=== PATIENT | female | born 1990 | race Hispanic/Latino ===

== ENCOUNTER 2022-07-22 20:15 | Observation (INO) | payer MEDICAID, SELFPAY ==
[2022-07-22] VITALS (17 sets, daily range): BP systolic 104–124; BP diastolic 67–76; PULSE 81–106; RESP 13–36; TEMP 36.9; O2SAT 93–95
--- NOTE | ~2022-07-22 | XR_ITS ---
XR chest 2V DATE: 07/25/2022 08:56 INDICATION: Dyspnea. Pneumonia. TECHNIQUE: PA and lateral views COMPARISON: July 22, 2022 CT pulmonary scan FINDINGS: Patchy bilateral pulmonary infiltrates are again noted, greatest in the lower lung zones. N o pleural effusion or pulmonary vascular congestion is noted. Heart size appears normal. IMPRESSION: Patchy bilateral pulmonary infiltrates, greater in the lower lung zones Reviewed, dictated and finalized at location [facility]. SUPERINTENDENT IMPRESSION: Patchy bilateral pulmonary infiltrates, greater in the lower lung z ones
--- NOTE | ~2022-07-22 | CT_ITS ---
Clinical Indication: Chest pain CT Scan of the Chest with Contrast: Technique: Contiguous sections were acquired throughout the chest after intravenous administration of 100 cc of Omnipaque 350. Dose reduction technique was used on this scan by utilizing automated expos ure control and iterative reconstruction technique. The dose-length product (DLP) was 643.11 mGy-cm. Findings: There are enlarged lymph nodes along the right paratracheal stripe, and the subcarinal region, at the right hilum. Largest node is a right hilar node measuring 2.6 x 1.8 cm (axial image 107).. There is no filling defect in the pulmonary arterial tree to suggest pulmonary embolus. There is no evidence o f aortic dissection or aneurysm. There is no evidence of pleural or pericardial effusion. There is extensive groundglass opacity and interstitial thickening at the lung bases. There is more m ild subpleural reticulation and interstitial thickening in the upper lobes and more superior lung zon es. Images through the upper abdomen reveal no abnormalities. Impression: No evidence of pulmonary embolus, aortic dissection, or aortic aneurysm. Extensive groundglass opacity and interstitial thickening at the lung bases, with more mild subpleura l reticulation and interstitial thickening in the more superior lung zones. Consider chronic intersti tial disease, atypical infection, or other inflammatory disorders. Drug toxicity or inhalational expo sure would be an alternative consideration. Mediastinal and hilar lymphadenopathy, nonspecific. This is presumably reactive. Consider follow-up exam after interval therapy to reassess both pulmonary disease and lymphadenopathy . Reviewed, dictated and finalized at [facility]. RATION SPECIALIST Impression: No evidence of pulmonary embolus, aortic dissection, or aortic aneurysm. Extensive groundglass opacity and interstitial thickening at the lung bases, wi th more mild subpleural reticulation and interstitial thickening in the more berry perior lung zones. Consider chronic interstitial disease, atypical infection, o r other inflammatory disorders. Drug toxicity or inhalational exposure would be an alternative consideration. Mediastinal and hilar lymphadenopathy, nonspecific. This is presumably reactive . Consider follow-up exam after interval therapy to reassess both pulmonary disea se and lymphadenopathy.
--- NOTE | 2022-07-22 20:26 | ECG_ITS ---
Measurements Intervals [place] Rate: 104 P: 31 CT: 141 QRS: 14 QRSD: 94 T: 5 QT: 334 QTc: 440 Interpretive Statements SINUS TACHYCARDIA NONSPECIFIC T-WAVE ABNORMALITY ABNORMAL ECG NO PREVIOUS ECG AVAILABLE FOR COMPARISON Electronically Signed On 07-23-2022 10:08:16 DOUBLE HEAD MACHINE OPERATOR by Bart Seth M.D.
[2022-07-22 20:39] LABS: Basophils Absolute Auto 0.1 K/mm3 (0.0-0.1); Basophils Percent Auto 0.9 % (0.2-1.2); Eosinophils Absolute Auto 0.7 K/mm3 (0-0.3); Eosinophils Percent Auto 6.6 % (0-4.4); Hematocrit 40.5 % (37.0-47.0); Hemoglobin 13.3 g/dL (12.0-15.0); Immature Granulocyte Absolute 0.03 K/mm3 (0.00-0.031); Immature Granulocyte Percent A 0.3 % (0-0.5); Lymphocytes Absolute Auto 1.99 K/mm3 (0.9-3.2); Lymphocytes Percent Auto 19.9 % (18.3-44.2); Mean Corpuscular HGB Conc 32.8 g/dl (32-36); Mean Corpuscular Hemoglobin 28.7 pg (26-34); Mean Corpuscular Volume 87.5 fl (80-100); Mean Platelet Volume 8.5 fl (7.4-10.4); Monocytes Absolute Auto 0.4 K/mm3 (0.1-0.6); Monocytes Percent Auto 4.3 % (2.6-8.5); Neutrophils Absolute Auto 6.8 K/mm3 (1.3-6.7); Platelet Count Result 377 k/mm3 (150-375); Red Blood Count 4.63 M/mm3 (4.2-5.4); Red Cell Distribution Width 12.8 % (11.5-14.5)
[2022-07-22 20:49] LABS: INR 1.1; Prothrombin Time 13.8 Seconds (11.1-14.7)
[2022-07-22 20:50] LABS: Partial Thromboplastin Time 30.7 SECONDS (22.3-36.8)
[2022-07-22 20:53] LABS: Alanine Aminotransferase 79 U/L (6-35); Albumin Level 4.4 g/dL (3.5-5.1); Alkaline Phosphatase 64 U/L (38-126); Anion Gap 6 mmol/L (8-16); Aspartate Amino Transferase 130 U/L (14-36); Bilirubin,Total 0.5 mg/dL (0.2-1.3); Blood Urea Nitrogen 9 mg/dL (7-17); Calcium 8.8 mg/dL (8.4-10.2); Carbon Dioxide 26 mmol/L (22-30); Chloride 101 mmol/L (98-107); Estimated Glomerular Filt Rate > 60; Glucose 106 mg/dL (65-110); Lipase 150 U/L (23-300); Potassium 3.8 mmol/L (3.4-5.0); Sodium 133 mmol/L (137-145)
[2022-07-22 21:04] LABS: Troponin I < 0.012 ng/mL (0.000-0.034)
--- NOTE | 2022-07-22 21:05 | ED.BACK ---
HPI - Back Pain/Injury General Chief Complaint: Back Pain/Injury <STEPHANIA Love Last Filed: 07/23/22 01:05> Stated Complaint: back pain <STEPHANIA Love Last Filed: 07/23/22 01:05> Time Seen by Provider: 07/22/22 20:46 <STEPHANIA Love Last Filed: 07/23/22 01:05> History of Present Illness HPI Narrative: Patient is a 32-year-old Turkish-speaking female here with her for evaluation of chest pain. Patient states that the pain is severe in nature, present in the center of her chest. Worse with deep respirations. States that she has also felt short of breath and notes a pain in her upper back. She tells me that she has been seen in the ED for this issue at outside hospital numerous times. Has been discharged with antibiotics that transiently improve her symptoms but states they have always come back. States that she was supposed to see a central sterile supply technician but was unable to get in due to insurance issues. She quit smoking cigarettes 1 year ago. Also notes bilateral leg pain and some paresthesias in her hands. Denies any hemoptysis, fevers, chills, nausea, vomiting or abdominal pain. <STEPHANIA Love Last Filed: 07/23/22 01:05> Related Data Allergies/Adverse Reactions: Allergies Allergy/AdvReac Type Severity Reaction Status Date / Time No Known Allergies Allergy Verified 07/22/22 20:51 <STEPHANIA Love Last Filed: 07/23/22 01:05> Review of Systems Review of Systems: Gen: Denies fevers or chills Eyes: Denies eye pain or visual change ENT: Denies congestion Respiratory: Reports shortness of breath and cough CV: Reports chest pain GI: Denies abdominal pain nausea, emesis or diarrhea denies burning, urgency, frequency or hematuria Musculoskeletal: Denies back pain or muscle pain Neuro: Denies numbness, tingling, weakness or focal weakness Skin: Denies rash Except as documented, all other systems reviewed and negative <STEPHANIA Love Last Filed: 07/23/22 01:05> Exam Narrative: APPEARANCE: Anxious appearing. Head: Normocephalic and atraumatic. EYES: PERRLA/EOMI, conjunctivae clear NOSE: No nasal drainage EARS: External ear normal in appearance THROAT: Oropharynx is clear. Mucous membranes are moist. NECK: Supple. No adenopathy, no masses. RESPIRATORY: Airway patent, respirations nonlabored. Clear to auscultation bilaterally, no rales, rhonchi, wheezing. CARDIOVASCULAR: Tachycardic. Regular rhythm without murmurs, rubs, or gallops. ABDOMINAL: Normoactive bowel sounds. Soft, nontender, nondistended. No rebound tenderness or guarding. MUSCULOSKELETAL: Extremities are warm and well-perfused. Moves all extremities well. No edema. NEURO: Normal speech. No focal neurologic deficits. SKIN: Skin is warm and dry. No rashes. PSYCHIATRIC: Normal affect/mood. <Sabina Navarro PA-C - Last Filed: 07/23/22 01:05> Course DRAWING IN MACHINE TENDER HELPER/PA Physician Supervision For this encounter, I have reviewed the PA documentation, treatment plan and medical decision making: And I have had [id number] time with the patient. On exam heart regular rate and rhythm without murmur lungs with mild coarse breath sounds in bilateral lung bases no wheezing abdomen is soft and nontender. PA discussed with hospitalist will admit with antibiotics and further inpatient evaluation <Calus Mobley DO - Last Filed: 07/23/22 00:09> Vital Signs Vital signs: Vital Signs Temperature 98.5 F 07/22/22 20:20 Pulse Rate 106 H 07/22/22 20:20 Respiratory Rate 14 07/22/22 20:20 Blood Pressure 124/76 07/22/22 20:20 Pulse Oximetry 94 07/22/22 20:20 Oxygen Delivery Room Air 07/22/22 20:20 Temperature 98.5 F 07/22/22 20:20 Pulse Rate 93 07/22/22 23:10 Respiratory Rate 18 07/22/22 23:10 Blood Pressure 112/70 07/22/22 21:04 Pulse Oximetry 94 07/22/22 21:46 Oxygen Delivery Room Air 07/22/22 20:20 <Sabina Gunter
[2022-07-22] MEDS: Please add drug allergy info to patient profile. 1 EACH XX (21:18)
--- NOTE | 2022-07-22 22:02 | PC.NURSE ---
CAYLA Muhammad verbal order to NOT give protocol ordered ASA at this time.
[2022-07-22 22:04] LABS: Influenza A QL RT-PCR Negative (Negative); Influenza B QL RT-PCR Negative (Negative); SARS-CoV-2 RNA PCR Negative
[2022-07-22 22:44] LABS: Beta HCG Quantitative < 2.39 mIU/ML
[2022-07-22] MEDS: ALBUTEROL SULFATE NEB 2.5 MG/3 ML INH INHALATION (22:58)
--- NOTE | 2022-07-22 23:50 | PM.IMHP ---
H&P: HPI History of Present Illness Date/Time: 07/22/22 23:50 Chief Complaint: shortness of breath Narrative: This is a 32-year-old female with past medical history significant for former tobacco user, patient presents to the emergency room due to generalized malaise, fevers, rigors, chills, muscle ache, shortness of breath at exertion patient was treated in the outpatient setting for pneumonia presents to the emergency room due to worsening fatigue over the last few weeks or so ever since April of last year. Has productive cough of white phlegm. Preliminary workup was significant for CT angiogram of the chest was reported as: multifocal scattered pneumonia. Patient also had a desaturation episode in the emergency room. Patient tested negative for COVID 19 influenza type A and influenza type B. Patient is been admitted for further evaluation management and treatment. Review of Systems Review of Systems: Shortness of breath, fatigue, cough productive of white phlegm, fevers, rigors, chills, body aches and pains Constitutional: Constitutional: Reports chills, Reports fatigue, Reports fever(s), Reports malaise and Reports night sweats Eyes: Eyes: Denies change in vision ENT: Denies dysphagia and Denies odynophagia Cardiovascular: Cardiovascular: Denies pedal edema, Denies leg edema, Denies lightheadedness and Denies radiating jaw, neck or arm pain Respiratory: Respiratory: Reports chest congestion, Reports cough, Reports excessive phlegm production and Reports dyspnea on exertion Gastrointestinal: Gastrointestinal: Denies abdominal pain, Denies dyspepsia, Denies heartburn, Denies diarrhea, Denies nausea and Denies vomiting Genitourinary: Genitourinary: Denies dysuria Musculoskeletal: Musculoskeletal: Reports myalgias Integumentary/Breasts: Skin/Breast: Denies rash Neurologic: Denies focal weakness and Denies Sensory deficit (Neuro) Psychiatric: Psychiatric: Reports no additional psychiatric complaints and Reports as per HPI Endocrine: Endocrine: Denies cold intolerance, Denies flushing, Denies heat intolerance, Denies polyphagia, Denies polydipsia and Denies palpitations Hematologic/Lymphatic: Hematologic/Lymphatic: Reports no additional hematologic/lymphatic complaints and Reports as per HPI Allergic/Immunologic: Allergic/Immunologic: Reports no additional allergic/immunologic complaints and Reports as per HPI Meds Home Medications and Allergies Allergies Allergy/AdvReac Type Severity Reaction Status Date / Time No Known Allergies Allergy Verified 07/22/22 20:51 Vital Signs Vital Signs - 24 hr 07/22/22 20:20 07/22/22 20:49 07/22/22 21:00 Temperature 98.5 F Pulse Rate 106 H 101 H 103 H Respiratory Rate 14 15 22 H Blood Pressure 124/76 Pulse Oximetry 94 95 Oxygen Delivery Room Air 07/22/22 21:04 07/22/22 21:05 07/22/22 21:15 Temperature Pulse Rate 94 94 101 H Respiratory Rate 22 H 36 H Blood Pressure 112/70 Pulse Oximetry 95 95 93 Oxygen Delivery 07/22/22 21:32 07/22/22 21:46 07/22/22 22:01 Temperature Pulse Rate 91 89 91 Respiratory Rate 25 H 15 25 H Blood Pressure Pulse Oximetry 95 94 Oxygen Delivery 07/22/22 22:58 07/22/22 23:10 Temperature Pulse Rate 81 93 Respiratory Rate 18 Blood Pressure Pulse Oximetry Oxygen Delivery Exam Narrative: patient is sitting in a stretcher Const: General: comfortable, no acute distress, well developed, alert, awake, ill appearing acutely and overweight Nutritional Appearance: average body habitus Orientation/consciousness: patient oriented x3 HENMT: Head: normal to inspection, normocephalic and atraumatic Ears: hearing grossly normal bilaterally Face/Nose/Sinus: normal facial exam Face and sinus: normal facial exam Eyes: General: appearance normal, both eyes and all related structures Pupils: Equal, round and reactive pupils present EOM: EOMs intact bilaterally Neck: Neck: full ROM, no l
[2022-07-23] VITALS (19 sets, daily range): BP systolic 93–118; BP diastolic 44–69; PULSE 68–100; RESP 14–49; TEMP 36.3–37.3; O2SAT 93–97
[2022-07-23] MEDS: SODIUM CHLORIDE 0.9% IV 1,000 ML 999 ML IV CONT (00:45)
[2022-07-23 00:53] LABS: Lactic Acid Reflex 1.1 mmol/L (0.7-2.0)
[2022-07-23 02:36] LABS: Troponin I 0.017 ng/mL (0.000-0.034)
--- NOTE | 2022-07-23 07:41 | PM.IMPN ---
Progress Note: A&P Assessment and Plan (1) Acute respiratory failure with hypoxia: Code(s): J96.01 - Acute respiratory failure with hypoxia Status: Acute Assessment and Plan: patient had episode of desaturation to 87% in the emergency room Continue breathing treatments scheduled Q4 hours. continue to monitor supplemental oxygen as needed Ambulate and monitor spO2 and SIMON CTA negative for PE. (2) Multifocal pneumonia: Code(s): J18.9 - Pneumonia, unspecified organism Status: Acute Assessment and Plan: Noted on CTA chest with scattered bilateral opacities. started on Rocephin and Zithromax in ED. blood cultures pending check legionella, strep pneumo, mycoplasma, and MRSA nasal swab. Check Alpha-1 antitrypsin (3) Former tobacco use: Code(s): Z87.891 - Personal history of nicotine dependence Status: Chronic Assessment and Plan: To be aware. Quit 1 year ago. Subjective Date/time seen: 07/23/22 07:41 Interval history: Patient is a 32-year-old female with past medical history significant for former tobacco use. She presented to the emergency room due to generalized malaise, fevers, rigors, chills, muscle ache, and dyspnea at exertion. CTA chest showed multifocal pneumonia and right hilar lymphadenopathy. Patient is jordanian-speaking only. No chair car driver is in the room or available by audio/video call. No acute respiratory distress noted. Patient is on room air. Nursing reports patient did not have any concerns this morning when video-call translation was used. Review of Systems Review of Systems: All systems reviewed & are unremarkable except as noted in HPI and below Exam Narrative: General: No acute distress.? Well-developed adult female lying in bed. Mental Status/Psych: Awake, alert with clear speech. Neutral mood and affect. Pleasant and cooperative. Skin: Skin fair, warm, dry and intact without rashes or lesions. No open wounds. Good turgor.? HEENT: Normocephalic. Sclera is non-icteric. Pupils equal and round. Oral mucosa pink and moist. Neck: Supple. No JVD. Heart: S1 and S2 regular rate and rhythm. No murmurs, gallops, or rubs auscultated. Chest: Respirations even and unlabored. Lung sounds diminished with fine rales bibasilar lobes. No accessory muscle use. Abdomen: Soft, round and non-tender to palpation.? Bowel sounds present in all 4 quadrants. Extremities:? Grossly normal ROM all extremities. No edema. Radial and dorsalis pedis pulses +2 bilaterally. Neurological: No focal deficits. Cranial nerves 2-12 grossly intact.? Objective Data Vital Signs Vital Signs: Vital Signs - 24 hr 07/22/22 20:20 07/22/22 20:49 07/22/22 21:00 Temperature 98.5 F Pulse Rate 106 H 101 H 103 H Respiratory Rate 14 15 22 H Blood Pressure 124/76 Pulse Oximetry 94 95 Oxygen Delivery Room Air 07/22/22 21:04 07/22/22 21:05 07/22/22 21:15 Temperature Pulse Rate 94 94 101 H Respiratory Rate 22 H 36 H Blood Pressure 112/70 Pulse Oximetry 95 95 93 Oxygen Delivery 07/22/22 21:32 07/22/22 21:46 07/22/22 22:01 Temperature Pulse Rate 91 89 91 Respiratory Rate 25 H 15 25 H Blood Pressure Pulse Oximetry 95 94 Oxygen Delivery 07/22/22 22:58 07/22/22 23:10 07/22/22 22:15 Temperature Pulse Rate 81 93 89 Respiratory Rate 18 20 Blood Pressure Pulse Oximetry 94 Oxygen Delivery 07/22/22 22:18 07/22/22 22:33 07/22/22 22:45 Temperature Pulse Rate 81 102 H 86 Respiratory Rate 26 H 13 27 H Blood Pressure 104/67 Pulse Oximetry 94 94 95 Oxygen Delivery 07/22/22 23:00 07/22/22 23:54 07/23/22 00:00 Temperature Pulse Rate 84 91 99 Respiratory Rate 27 H 15 25 H Blood Pressure Pulse Oximetry 95 95 95 Oxygen Delivery 07/23/22 00:17 07/23/22 00:30 07/23/22 00:45 Temperature Pulse Rate 100 96 96 Respiratory Rate 28 H 49 H 37 H Blood Pressure Pulse Oximetry 93 95 O
[2022-07-23] MEDS: IPRATROPIUM BR 0.02% INH SOLN 0.5 MG/2.5 ML VIAL INHALATION ×4 (08:03→20:52)
[2022-07-23] MEDS: ALBUTEROL SULFATE NEB 2.5 MG/3 ML INH INHALATION ×4 (08:04→20:52)
[2022-07-23 09:05] LABS: Alanine Aminotransferase 72 U/L (6-35); Albumin Level 4.1 g/dL (3.5-5.1); Alkaline Phosphatase 57 U/L (38-126); Anion Gap 6 mmol/L (8-16); Aspartate Amino Transferase 110 U/L (14-36); Bilirubin,Total 0.6 mg/dL (0.2-1.3); Blood Urea Nitrogen 7 mg/dL (7-17); CRP 1.4 mg/dL (<1.0); Calcium 8.5 mg/dL (8.4-10.2); Carbon Dioxide 26 mmol/L (22-30); Chloride 104 mmol/L (98-107); Estimated Glomerular Filt Rate > 60; Glucose 91 mg/dL (65-110); Potassium 3.7 mmol/L (3.4-5.0); Sodium 136 mmol/L (137-145)
[2022-07-23] MEDS: ENOXAPARIN 40 MG/0.4 ML SYRINGE SUB-Q (09:12)
[2022-07-23 09:17] LABS: Basophils Absolute Auto 0.1 K/mm3 (0.0-0.1); Eosinophils Absolute Auto 0.6 K/mm3 (0-0.3); Eosinophils Percent Auto 8.8 % (0-4.4); Hematocrit 39.1 % (37.0-47.0); Hemoglobin 12.7 g/dL (12.0-15.0); Immature Granulocyte Absolute 0.01 K/mm3 (0.00-0.031); Immature Granulocyte Percent A 0.2 % (0-0.5); Lymphocytes Absolute Auto 1.91 K/mm3 (0.9-3.2); Lymphocytes Percent Auto 30.4 % (18.3-44.2); Mean Corpuscular HGB Conc 32.5 g/dl (32-36); Mean Corpuscular Hemoglobin 29.4 pg (26-34); Mean Corpuscular Volume 90.5 fl (80-100); Mean Platelet Volume 8.8 fl (7.4-10.4); Monocytes Absolute Auto 0.5 K/mm3 (0.1-0.6); Monocytes Percent Auto 7.2 % (2.6-8.5); Neutrophils Absolute Auto 3.3 K/mm3 (1.3-6.7); Neutrophils Percent Auto 52.4 % (45.5-73.1); Platelet Count Result 312 k/mm3 (150-375); Red Blood Count 4.32 M/mm3 (4.2-5.4); White Blood Count 6.3 K/mm3 (4.5-10.0)
[2022-07-23 09:20] LABS: Procalcitonin 0.1 ng/mL
--- NOTE | 2022-07-23 12:42 | PC.NURSE ---
Walking Dragline Oiler called significant other José to get information in regards to past antibiotics the patient has been given, but no response at this time.
--- NOTE | 2022-07-24 01:26 | PCRCNOTE ---
Window of time for administration has passed. See next scheduled administration.
[2022-07-24] MEDS: IPRATROPIUM BR 0.02% INH SOLN 0.5 MG/2.5 ML VIAL INHALATION ×3 (05:29→14:18)
[2022-07-24] MEDS: SODIUM CHLOR 3% 15 ML NEB (RESPIRATORY THERAPY) 6 ML INHALATION (05:30)
[2022-07-24] MEDS: ALBUTEROL SULFATE NEB 2.5 MG/3 ML INH INHALATION ×3 (05:30→14:18)
[2022-07-24 05:57] VITALS: BP 99/69; PULSE 102; RESP 20; TEMP 36.2; O2SAT 91
[2022-07-24] MEDS: ENOXAPARIN 40 MG/0.4 ML SYRINGE SUB-Q (08:50)
[2022-07-24 09:48] VITALS: PULSE 85; RESP 18
[2022-07-24 14:00] VITALS: BP 106/62; PULSE 80; RESP 18; TEMP 36.4; O2SAT 97
[2022-07-24 14:21] VITALS: PULSE 83; RESP 18; O2SAT 95
[2022-07-24 14:30] VITALS: PULSE 86; RESP 18
--- NOTE | 2022-07-24 14:34 | PM.IMPN ---
Progress Note: A&P Assessment and Plan (1) Acute respiratory failure with hypoxia: Code(s): J96.01 - Acute respiratory failure with hypoxia Status: Acute Assessment and Plan: patient had episode of desaturation to 87% in the emergency room Continue breathing treatments scheduled Q4 hours. continue to monitor supplemental oxygen as needed Ambulate and monitor spO2 and SIMON CTA negative for PE but does show enlarged lymph nodes along the right paratracheal stripe, and the subcarinal region, at the right hilum. Largest node is a right hilar node measuring 2.6 x 1.8 cm. Severe clubbing noted on exam - repeat imaging warranted once infection has been completely treated. (2) Multifocal pneumonia: Code(s): J18.9 - Pneumonia, unspecified organism Status: Acute Assessment and Plan: Noted on CTA chest with scattered bilateral opacities. started on Rocephin and Zithromax in ED and continued on admission, first dose 07/22/22. Transition to Cefdinir 300 mg PO BID and Azithromycin 500 mg PO daily to complete antibiotic course. blood cultures pending check legionella, strep pneumo, mycoplasma, and MRSA nasal swab- pending. Check Alpha-1 antitrypsin Consider Pulmonology consult if patient is not improving. Repeat 2 view chest xray in am. (3) Former tobacco use: Code(s): Z87.891 - Personal history of nicotine dependence Status: Chronic Assessment and Plan: To be aware. Quit 1 year ago. Plan CODE STATUS: FULL CODE Disposition: from home. Subjective Date/time seen: 07/24/22 14:34 Interval history: Patient is a 32-year-old female with past medical history significant for former tobacco use. She presented to the emergency room due to generalized malaise, fevers, rigors, chills, muscle ache, and dyspnea at exertion. CTA chest showed multifocal pneumonia and right hilar lymphadenopathy. Patient is french-speaking only. Per Latvian video translation, patient reports she is feeling better. She still reports dyspnea with exertion, nonproductive cough and pleuritic chest pain. She states she has noted changes to her fingertips in the past year and occasionally has purplish-blue tinge noted. Per nursing, patient was tachycardic, HR 120s ambulating from the bathroom. Review of Systems Review of Systems: All systems reviewed & are unremarkable except as noted in HPI and below Exam Narrative: General: No acute distress.? Well-developed adult female lying in bed. Mental Status/Psych: Awake, alert with clear speech. Neutral mood and affect. Pleasant and cooperative. Skin: Skin fair, warm, dry and intact without rashes or lesions. No open wounds. Good turgor.? HEENT: Normocephalic. Sclera is non-icteric. Pupils equal and round. Oral mucosa pink and moist. Neck: Supple. No JVD. Heart: S1 and S2 regular rate and rhythm. No murmurs, gallops, or rubs auscultated. Chest: Respirations even and unlabored. Lung sounds diminished with rhonchi RML. No wheezing. No accessory muscle use. Abdomen: Soft, round and non-tender to palpation.? Bowel sounds present in all 4 quadrants. Extremities:? Grossly normal ROM all extremities. No edema. Radial and dorsalis pedis pulses +2 bilaterally. Neurological: No focal deficits. No facial droop. ? Objective Data Vital Signs Vital Signs: Vital Signs - 24 hr 07/23/22 17:11 07/23/22 17:25 07/23/22 20:55 Temperature Pulse Rate 74 70 Respiratory Rate 20 20 Blood Pressure Pulse Oximetry 96 Oxygen Delivery Room Air 07/23/22 20:55 07/23/22 22:00 07/23/22 20:00 Temperature 99.2 F Pulse Rate 84 82 Respiratory Rate 20 14 Blood Pressure 118/60 Pulse Oximetry 97 97 Oxygen Delivery Room Air 07/24/22 05:57 07/24/22 09:48 07/24/22 08:00 Temperature 97.1 F L Pulse Rate 102 H 85 Respiratory Rate 20 18 Blood Pressure 99/69 L Pulse Oximetry 91 Oxygen Delivery Room Air 07/24/22 14:21 0
[2022-07-24] MEDS: CEFDINIR 300 MG CAPSULE PO (21:25)
[2022-07-24] MEDS: AZITHROMYCIN 250 MG TABLET 500 MG PO (21:25)
[2022-07-24 21:56] VITALS: BP 95/57; PULSE 73; RESP 16; TEMP 36.2; O2SAT 97
[2022-07-25 06:00] VITALS: BP 110/58; PULSE 80; RESP 18; TEMP 36.2; O2SAT 96
[2022-07-25 07:24] LABS: Basophils Absolute Auto 0.1 K/mm3 (0.0-0.1); Eosinophils Absolute Auto 0.7 K/mm3 (0-0.3); Eosinophils Percent Auto 9.2 % (0-4.4); Hematocrit 40.5 % (37.0-47.0); Hemoglobin 13.2 g/dL (12.0-15.0); Immature Granulocyte Absolute 0.03 K/mm3 (0.00-0.031); Immature Granulocyte Percent A 0.4 % (0-0.5); Lymphocytes Absolute Auto 1.89 K/mm3 (0.9-3.2); Lymphocytes Percent Auto 25.7 % (18.3-44.2); Mean Corpuscular HGB Conc 32.6 g/dl (32-36); Mean Corpuscular Hemoglobin 29.4 pg (26-34); Mean Corpuscular Volume 90.2 fl (80-100); Mean Platelet Volume 8.5 fl (7.4-10.4); Monocytes Absolute Auto 0.5 K/mm3 (0.1-0.6); Monocytes Percent Auto 7.3 % (2.6-8.5); Neutrophils Absolute Auto 4.2 K/mm3 (1.3-6.7); Neutrophils Percent Auto 56.4 % (45.5-73.1); Platelet Count Result 341 k/mm3 (150-375); Red Blood Count 4.49 M/mm3 (4.2-5.4); Red Cell Distribution Width 12.9 % (11.5-14.5); White Blood Count 7.4 K/mm3 (4.5-10.0)
[2022-07-25 07:55] LABS: Procalcitonin 0.1 ng/mL
[2022-07-25] MEDS: ENOXAPARIN 40 MG/0.4 ML SYRINGE SUB-Q (09:03)
[2022-07-25] MEDS: CEFDINIR 300 MG CAPSULE PO (09:03)
--- NOTE | 2022-07-25 13:15 | PM.DS ---
DS: Admitting Diagnosis Discharge Date 07/25/2022 Admitting Diagnosis Multifocal pneumonia Former tobacco use Acute respiratory failure with hypoxia DS: Discharge Diagnosis Discharge Diagnosis (1) Acute respiratory failure with hypoxia: Code(s): J96.01 - Acute respiratory failure with hypoxia Status: Acute Assessment and Plan: Patient presented with c/o SOB, noted to have episode of desaturation to 87%RA in the emergency room Treated with scheduled Q4 hours duonebs. Treated with supplemental oxygen as needed to keep sats>90% Ambulate and monitor spO2 and SIMON- noted to have SIMON and tachycardia 120 bpm on 07/24 CTA negative for PE but showed enlarged lymph nodes along the right paratracheal stripe and the subcarinal region at the right hilum. Largest node is a right hilar node measuring 2.6 x 1.8 cm. clubbing noted on exam - repeat imaging warranted once infection has been completely treated. CT chest in 2 months. Patient repeatedly counseled with food and beverage intern to obtain follow up imaging. Counseled to avoid return to smoking. (2) Multifocal pneumonia: Code(s): J18.9 - Pneumonia, unspecified organism Status: Acute Assessment and Plan: Noted on CTA chest with scattered bilateral opacities. Treated with IV Rocephin and Zithromax in ED and continued on admission, first dose 07/22/22. Transitioned to Cefdinir 300 mg PO BID and Azithromycin 500 mg PO daily to complete antibiotic course on 07/24. Azithromycin last dose 07/25. Continue total 7-days cephalosporins. blood cultures negative to date. MRSA nasal swab negative. ?legionella, strep pneumo, mycoplasma ordered but not obtained by discharge Check Alpha-1 antitrypsin - ordered but canceled by lab x2 for unknown reason. Repeat 2 view chest xray on 07/25 without worsening of bilateral opacities, patchy and worsened in bibasilar lobes. (3) Former tobacco use: Code(s): Z87.891 - Personal history of nicotine dependence Status: Chronic Assessment and Plan: To be aware. Quit 1 year ago. DS: Summary Hospital Course Reason for hospitalization: Shortness of breath Hospital Course: Patient is a 32-year-old female with past medical history significant for former tobacco use. She presented to the emergency room due to generalized malaise, fevers, rigors, chills, muscle ache, and dyspnea at exertion. CTA chest showed multifocal pneumonia and right hilar lymphadenopathy. She had been treated?in the outpatient setting for pneumonia prior to admission. She had worsening fatigue over the last few weeks or so since April of last year.? Patient tested negative for COVID 19 influenza type A and influenza type B.? She was admitted for further evaluation management and treatment. Patient is djiboutian speaking only. She was treated with IV Rocephin and IV Azithromycin. Supplemental O2 was continued to keep sats>90%. She was weaned to room air with adequate saturations. She did have an episode of tachycardia 120 bpm with ambulation, but no desaturation. Nebulizer treatments were changed to PRN and tachycardia improved. She was transitioned to oral cefdinir 300 mg PO BID to complete 7-day course cephalosporins. Azithromycin was continued 07/22 to 07/24. She was counseled via consulting hr professional with her spouse present to continue to abstain from smoking, continue antibiotics and have follow up CT in 2 months to ensure resolution of pneumonia and hilar lympadenopathy, especially to rule out malignancy. Of note, clubbing was noted on exam and patient reported presence for approximately 1 year. She was discharged home in stable condition. She was counseled to follow up with [facility] PCP on-call in 1-2 weeks.? Status at Discharge Cognitive/behavioral status at discharge: Alert, baseline cognition, djiboutian speaking Functional status at discharge: independent ambulation Overall status at discharge: patient is progressing back to baseline Time Spent with Pat
--- NOTE | 2022-07-25 13:45 | PC.NURSE ---
PT discharged home with instructions, Alert and Orientated to 4, able to ambulate, voids spontaneously, IV discontinued, no c/o pain. Verbalizes understanding of DC instructions and medications. Used historic interpreter services. Vicenta Quintana RN
--- NOTE | 2022-07-26 11:34 | PC.NURSE ---
Pharmacy called wanting clarifications r/t Albuterol Order. All questions answered and dosage amount confirmed.
== END 2022-07-25 13:45 | disposition home or self-care (01) ==
LOC: ANHED 07-23 01:05 → ANH3MEDSUR 07-23 01:31
PROVIDERS: Emergency Medicine; Nurse Practitioner Family; Admitting Provider Internal Medicine; Emergency Provider Physician Assistant; Visit Provider Student in an Organized Health Care Education/Training Program
DX: J96.01 Acute respiratory failure with hypoxia (principal); J18.9 Pneumonia, unspecified organism; R91.8 Other nonspecific abnormal finding of lung field; M79.605 Pain in left leg; M79.604 Pain in right leg; M54.9 Dorsalgia, unspecified; R94.31 Abnormal electrocardiogram [ECG] [EKG]; R20.0 Anesthesia of skin; E66.9 Obesity, unspecified; Z20.822 Contact with and (suspected) exposure to COVID-19; R68.89 Other general symptoms and signs; Z87.891 Personal history of nicotine dependence
CPT/HCPCS: 36415; 71046; 71275; 80053; 81025; 83605; 83690; 84145; 84484; 84702; 85025; 85610; 85730; 86140; 87040; 87081; 87636; 93005; 94640; 96365; 96367; 96372; 99285; A9270; G0378; G0379; J0456; J0696; J1650; J7030; Q9967